=== PATIENT | male | born 1975 | race Caucasian/White ===

== ENCOUNTER → 2022-05-07 | Outpatient (CLI) | payer OTHER ==
[~2022-05-07] MED LIST: OXYCODON-ACETA1 EAC1 PO; ZOFRAN 4 MG TAB4 MG PO
== END ==
LOC: KOH-I 14:45
DX: M24.811 Other specific joint derangements of right shoulder, not elsewhere classified (principal); M19.011 Primary osteoarthritis, right shoulder
CPT/HCPCS: 73221